=== PATIENT | female | born 2005 | race Caucasian/White ===

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

== ENCOUNTER 2023-04-02 16:49 | Emergency (ER) | payer MEDICAID ==
[2023-04-02] MEDS ORDERED: CLONIDINE 0.1 MG TABLET PO ONE (17:55)
[2023-04-02] MEDS ORDERED: CLONIDINE 0.1 MG TABLET ONE (17:58)
[2023-04-02 18:12] VITALS: O2SAT 98
--- NOTE | 2023-04-02 18:45 | ERPHSYRPT ---
- History of Present Illness Source: patient Exam Limitations: no limitations Patient Subjective Stated Complaint: Pt was at work when she noticed her blood pressure was elevated at 185/120 and so [facility], pt was in [place] last month with a blood pressure over 200 and she stated that they told her she was at stroke level and overweight and sent her home with no medication, pt then went to [facility] [place] and was placed on labetalol Triage Nursing Assessment: Pt brought self to the ER, hypertensive, rates head pain as 5/10, denies swelling of lower extremety, pulses normal, skin n/w/d, denies chest pain, states that she has been having SOB if she moves Physician History: 18 yo WF w recent diagnosis of hypertension treated w Labetalol x 1 month effectively per pt complains of elevated BP today along w B frontal headache. She has blurry vision but denies focal weakness/fever/stiff neck/nausea/vomiting/chest pain/dyspnea. Pain is 5/10. Timing/Duration: today Severity: mild Modifying Factors: Improves With: nothing Associated Symptoms: denies symptoms, headaches Allergies/Adverse Reactions: No Known Drug Allergies Allergy (Verified 04/02/23 17:09) Home Medications: Levothyroxine Sodium 50 Mcg [Synthroid 50 Mcg] 100 mcg PO DAILY 11/15/18 [History] Cholecalciferol (Vitamin D3) [Vitamin D3] 1,250 mcg PO WEEKLY 04/02/23 [History] Labetalol HCl 100 mg [Trandate 100 MG] 100 mg PO BID 04/02/23 [History] Levonorgestrel-Ethin Estradiol [[place]-28 Tablet] 1 each PO DAILY 04/02/23 [History] Venlafaxine HCl [Venlafaxine HCl ER] 75 mg PO DAILY 04/02/23 [History] Hx Tetanus, Diphtheria Vaccination/Date Given: Yes Hx Influenza Vaccination/Date Given: Yes (07/31/19) Hx Pneumococcal Vaccination/Date Given: No Travel Risk - International Travel Have you traveled outside of the country in past 3 weeks: No - Coronavirus Screening Are you exhibiting any of the following symptoms?: No Close contact with a COVID-19 positive Pt in past 14-21 Days: No - Vaccine Status Have you recieved a Covid-19 vaccination: Yes [employer]: [employer] - Vaccination Dates Date of 2cond Vaccination (if applicable): 2020 - Review of Systems Constitutional: No Symptoms, Malaise Eyes: No Symptoms Ears, Nose, & Throat: No Symptoms Respiratory: No Symptoms Cardiac: No Symptoms Abdominal/Gastrointestinal: No Symptoms Genitourinary Symptoms: No Symptoms Musculoskeletal: No Symptoms Skin: No Symptoms Neurological: No Symptoms, Headache Psychological: No Symptoms Endocrine: No Symptoms Hematologic/Lymphatic: No Symptoms Immunological/Allergic: No Symptoms - Past Medical History Pertinent Past Medical History: Yes Neurological History: No Pertinent History ENT History: No Pertinent History Cardiac History: No Pertinent History Respiratory History: No Pertinent History Endocrine Medical History: Hypothyroidism Musculoskeletal History: No Pertinent History GI Medical History: No Pertinent History History: No Pertinent History Psycho-Social History: Attention Deficit Disorder Female Reproductive Disorders: No Pertinent History - Past Surgical History Past Surgical History: Yes Neuro Surgical History: No Pertinent History Cardiac: No Pertinent History Respiratory: No Pertinent History Gastrointestinal: No Pertinent History Genitourinary: No Pertinent History Musculoskeletal: No Pertinent History Female Surgical History: No Pertinent History Other Surgical History: T & A - Social History Smoking Status: Never smoker Exposure to second hand smoke: No Drug Use: none Patient Lives Alone: No Significant Family History: other (brother had liver transplant, mother had heart failure) - Female History Hx Last Menstrual Period: 03/31/2023 Hx Now: No (on control) - Nursing Vital Signs Nursing Vital Signs: Initial Vital Signs Pulse Rate 95 H 04/02/23 16:57 Blood Pressure 154/104 04/02/23 16:57 O2 Sat by Pulse Oximetry 97 04/02/23 16:57 Pain Scale Pain Intensity 5 Hypertensive - Physical Exam General Appearance: no apparent distress Eye Exam: PERRL/EOMI, eyes nml inspection Ears, Nose, Throat Exam: normal ENT inspection, TMs normal, pharynx normal, moist mucous membranes Neck Exam: normal inspection, non-tender, supple, full range of motion, No meningismus, No mass, No Brudzinski, No Kernig's, No carotid bruit Respiratory Exam: normal breath sounds, lungs clear, airway intact Cardiovascular Exam: regular rate/rhythm, normal heart sounds, normal peripheral pulses, capillary refill <2 sec, No murmur Gastrointestinal/Abdomen Exam: soft, normal bowel sounds, No tenderness Back Exam: normal inspection, normal range of motion, No CVA tenderness, No vertebral tenderness Extremity Exam: normal inspection, normal range of motion Neurologic Exam: alert, oriented x 3, cooperative, travel accommodations rater II-XII nml as tested, normal mood/affect, nml cerebellar function, nml station & gait, sensation nml Skin Exam: normal color, warm, dry Lymphatic Exam: No adenopathy SpO2 Interpretation: normal SpO2: 98 O2 Delivery: Room Air - Course Nursing assessment & vital signs reviewed: Yes - CT Exams Head CT Interpretation: Discussed w/radiologist (CT head neg) Ordered Tests: Active Orders 24 hr Category Date Time Status IV Insertion STAT Care 04/02/23 17:12 Completed POCT Glucose Check STAT Care 04/02/23 19:14 Completed HEAD WITHOUT CONTRAST [CT] Stat Exams 04/02/23 17:55 Taken POCT GLUCOSE Stat Lab 04/02/23 19:16 Completed Medication Summary Discontinued Medications Generic Name Dose Route Start Last Admin Trade Name T[place]ana PRN Reason Stop Dose Admin Clonidine 0.2 mg 04/02/23 17:55 04/02/23 17:59 Clonidine Hcl 0.1 Mg Tablet PO 04/02/23 17:56 0.2 mg STAT ONE Administration Clonidine Confirm 04/02/23 17:58 Clonidine Hcl 0.1 Mg Tablet Administered 04/02/23 17:59 Dose 0.2 mg .ROUTE .STK-MED ONE Ketorolac Tromethamine 15 mg 04/02/23 19:11 04/02/23 19:15 Ketorolac Tromethamine 30 Mg/Ml Inj IV 04/02/23 19:12 15 mg STAT ONE Administration Ketorolac Tromethamine Confirm 04/02/23 19:15 Ketorolac Tromethamine 30 Mg/Ml Inj Administered 04/02/23 19:16 Dose 30 mg .ROUTE .STK-MED ONE Lab/Rad Data: Laboratory Results 04/02/23 Range/Units 19:16 POC Glucometer 111 H (74 to 106) mg/dL - Progress Progress Note: 04/02/23 19:21 Nursing note and vital signs reviewed No food or housing insecurities noted Additional history per mother CT head result reviewed and shared w pt/mother BP improved w 0.2 po Clonidine 15mg IV Toradol Accu-check w glucose 111 Serial neuro exams normal 04/02/23 19:23 Counseled pt/family regarding: diagnosis, need for follow-up, rad results Medical Desision Making - Independent Historian Additional History obtained from: Mother - Diagnostic Testing Radiological Interpretation: Reviewed by me, Discussed w/ radiologist - Risk of complications The pt has a mod risk of morbidity or mortality based on: Need for prescription drug management - Departure Departure Disposition: Home Clinical Impression: Hypertension, Headache Condition: Stable Critical Care Time: No Referrals: BIN EMANUEL MD [Primary Care Provider] - Follow up/PCP as directed Instructions: Malignant Hypertension (DC) Additional Instructions: Continue Labetalol Follow up with your family MD in 1-2 days Return to ER for increasing pain, focal weakness, or persistently elevated blood pressure
[2023-04-02] MEDS ORDERED: TORAdol 30 mg Injection IV ONE (19:11)
[2023-04-02] MEDS ORDERED: TORAdol 30 mg Injection ONE (19:15)
[2023-04-02 19:20] VITALS: BP 132/96; PULSE 70
--- NOTE | 2023-04-03 08:40 | XRAY ---
Indication: Headache. Hypertension. Migraine headache. Multiple contiguous axial images obtained through the head without contrast. Comparison: November 15, 2018 Continued normal appearing brain parenchyma, ventricles, and bony calvarium with incidental anatomic variant for cavum septum pellucidum. Visualized paranasal sinuses and mastoid air cells are clear. Impression: Continued normal CT head without contrast exam.
== END 2023-04-02 19:32 | disposition home or self-care (01) ==
LOC: ED 16:49
DX: I10 Essential (primary) hypertension (principal); R51.9 Headache, unspecified; H53.8 Other visual disturbances; Z79.899 Other long term (current) drug therapy
CPT/HCPCS: 36000; 70450; 82947; 96374; 99284; J1885; A9270-GY

== ENCOUNTER 2025-07-06 08:26 | Emergency (ER) | payer BC ==
[2025-07-06 08:38] VITALS: TEMP 97.2
--- NOTE | 2025-07-06 08:58 | ERPHSYRPT ---
- History of Present Illness Time Seen by Provider: 07/06/25 08:32 Patient Subjective Stated Complaint: patient came in today having chest pain and shortness of breath Triage Nursing Assessment: pt is alert and orientedx3, able to ambulate by self, mom drove her to ED this morning, she has been having episodes of shortness of breath and dizzyness, some chest pain, she says DR. Preston order echo and a halter monitor she is supposed to start wearing. echo is scheduled for . patient has no edema noted, gait is steady, skin warm dry and intact. says shes been feeling like this for some time jsut recently starting testing done. 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) and has blood test and an echocardiogram scheduled, Apparently they also schedule sleep study, PMH: Hypertension, hypothyroid; Prior Episodes: recent history Timing/Duration: intermittent Precipitating Factors: lightheadedness Context: other (Positional) Charcter of event(s): felt faint Allergies/Adverse Reactions: No Known Drug Allergies Allergy (Verified 04/02/23 17:09) Home Medications: Levothyroxine Sodium 50 Mcg [Synthroid 50 Mcg] 100 mcg PO DAILY 11/15/18 [History] Labetalol HCl 100 mg [Trandate 100 MG] 200 mg PO BID 04/02/23 [History] Venlafaxine HCl [Venlafaxine HCl ER] 150 mg PO DAILY 04/02/23 [History] Amlodipine Besylate 5 mg [Norvasc 5 mg] 2.5 mg PO DAILY 07/06/25 [History] Hx Tetanus, Diphtheria Vaccination/Date Given: Yes Hx Influenza Vaccination/Date Given: Yes (07/31/19) Hx Pneumococcal Vaccination/Date Given: No Travel Risk - International Travel Have you traveled outside of the country in past 3 weeks: No - Emerging Infectious Disease Are you exhibiting symptoms associated with any current EIDs: No - Past Medical History Pertinent Past Medical History: Yes Neurological History: No Pertinent History ENT History: No Pertinent History Cardiac History: No Pertinent History Respiratory History: No Pertinent History Endocrine Medical History: Hypothyroidism Musculoskeletal History: No Pertinent History GI Medical History: No Pertinent History History: No Pertinent History Psycho-Social History: Attention Deficit Disorder Female Reproductive Disorders: No Pertinent History - Past Surgical History Past Surgical History: Yes Neuro Surgical History: No Pertinent History Cardiac: No Pertinent History Respiratory: No Pertinent History Gastrointestinal: No Pertinent History Genitourinary: No Pertinent History Musculoskeletal: No Pertinent History Female Surgical History: No Pertinent History Other Surgical History: T & A Significant Family History: other (brother had liver transplant, mother had heart failure) - Female History Hx Last Menstrual Period: NA Hx Now: No - Social History Smoking Status: Never smoker Exposure to second hand smoke: No Drug Use: none - Social Determinants of Health Will the patient participate in the screening: Yes Do you worry about a steady place to live?: No Do you have any problems with any of the following?: No known problems In the past 12 months,have you had to go without utilities?: No Transportation Issues: No Has anyone in your support network made you feel unsafe?: No Have you or anyone in your house had to go w/o enough food: No Physical Exam - Nursing Vital Signs Nursing Vital Signs: Initial Vital Signs Temperature 97.2 F 07/06/25 08:30 Pulse Rate 85 07/06/25 08:30 Respiratory Rate 16 07/06/25 08:30 Blood Pressure 140/110 07/06/25 08:30 O2 Sat by Pulse Oximetry 99 07/06/25 08:30 Pain Scale Pain Intensity 0 - Physical Exam General Appearance: no apparent distress, alert, obese Eye Exam: bilateral eye: normal inspection, PERRL, EOMI Ears, Nose, Throat Exam: normal ENT inspection, pharynx normal, moist mucous membranes Neck Exam: normal inspection, non-tender, supple, full range of motion Respiratory: normal breath sounds, lungs clear Cardiovascular: regular rate/rhythm, normal heart sounds, normal peripheral pulses Gastrointestinal: soft, normal bowel sounds Extremity Exam: normal inspection, normal range of motion, pelvis stable manager programs Exam: normal hearing, normal speech, PERRL Coordination/Gait: normal cerebellar function Motor/Sensory: no motor deficit, no sensory deficit, no pronator drift Skin Exam: normal color, warm, dry SpO2 Interpretation: normal SpO2: 100 - Course EKG Interpreted by Me: Sinus Rhythm, NORMAL AXIS, NORMAL INTERVALS, NORMAL QRS, NORMAL ST-T Ordered Tests: Active Orders 24 hr Category Date Time Status IV Insertion STAT Care 07/06/25 08:47 Active CHEST 1 VIEW (PORTABLE) Stat Exams 07/06/25 08:57 Completed CBC W DIFF Stat Lab 07/06/25 08:50 Completed CMP Stat Lab 07/06/25 08:50 Completed D-DIMER QUANTITATIVE Stat Lab 07/06/25 08:50 Completed TROPONIN Q2H Lab 07/06/25 08:50 Completed TROPONIN Q2H Lab 07/06/25 10:44 Completed TROPONIN Q2H Lab 07/06/25 13:00 Ordered Lab/Rad Data: Laboratory Result Diagrams 07/06/25 08:50 07/06/25 08:50 Laboratory Results 07/06/25 07/06/25 07/06/25 Range/Units 10:44 08:50 08:50 WBC (3.98-10.04) x10^3/uL RBC (3.93-5.22) x10^6/uL Hgb (11.2-15.7) g/dL Hct (34.1-44.9) % MCV (79.4-94.8) fL MCH (25.6-32.2) pg MCHC (32.2-35.5) g/dL RDW (11.7-14.4) % Plt Count (182-369) x10^3/uL MPV (9.4-12.3) fL Gran % (34.0-71.1) % Immature Gran % (Auto) (0.001-0.429) % Nucleat RBC Rel Count (0.00-0.2) % Eos # (Auto) (0.04-0.36) x10^3/uL Immature Gran # (Auto) (0.001-0.031) x10^3u/L Absolute Lymphs (auto) (1.18-3.74) x10^3/uL Absolute Monos (auto) (0.24-0.86) x10^3/uL Absolute Nucleated RBC (0.00-0.012) x10^3u/L Lymphocytes % (19.3-51.7) % Monocytes % (4.7-12.5) % Eosinophils % (0.7-5.8) % Basophils % (0.1-1.2) % Absolute Granulocytes (1.56-6.13) x10^3/uL Basophils # (0.01-0.08) x10^3/uL D-Dimer < 0.19 (0.0-0.50) mg/L Sodium (135-145) mmol/L Potassium (3.5-5.1) mmol/L Chloride (98-107) mmol/L Carbon Dioxide (22-30) mmol/L Anion Gap (5-15) MEQ/L BUN (7-17) mg/dL Creatinine (0.52-1.04) mg/dL Estimated GFR ML/MIN Glucose (74-106) mg/dL Calcium (8.4-10.2) mg/dL Total Bilirubin (0.2-1.3) mg/dL AST (14-36) U/L ALT (0-35) U/L Alkaline Phosphatase (38-126) U/L Troponin I < 0.012 < 0.012 (0.000-0.033) ng/mL Serum Total Protein (6.3-8.2) g/dL Albumin (3.5-5.0) g/dL 07/06/25 07/06/25 Range/Units 08:50 08:50 WBC 6.6 (3.98-10.04) x10^3/uL RBC 4.79 (3.93-5.22) x10^6/uL Hgb 14.5 (11.2-15.7) g/dL Hct 43.2 (34.1-44.9) % MCV 90.2 (79.4-94.8) fL MCH 30.3 (25.6-32.2) pg MCHC 33.6 (32.2-35.5) g/dL RDW 12.2 (11.7-14.4) % Plt Count 286 (182-369) x10^3/uL MPV 10.3 (9.4-12.3) fL Gran % 50.4 (34.0-71.1) % Immature Gran % (Auto) 0.3 (0.001-0.429) % Nucleat RBC Rel Count 0.0 (0.00-0.2) % Eos # (Auto) 0.11 (0.04-0.36) x10^3/uL Immature Gran # (Auto) 0.02 (0.001-0.031) x10^3u/L Absolute Lymphs (auto) 2.43 (1.18-3.74) x10^3/uL Absolute Monos (auto) 0.65 (0.24-0.86) x10^3/uL Absolute Nucleated RBC 0.00 (0.00-0.012) x10^3u/L Lymphocytes % 36.9 (19.3-51.7) % Monocytes % 9.9 (4.7-12.5) % Eosinophils % 1.7 (0.7-5.8) % Basophils % 0.8 (0.1-1.2) % Absolute Granulocytes 3.32 (1.56-6.13) x10^3/uL Basophils # 0.05 (0.01-0.08) x10^3/uL D-Dimer (0.0-0.50) mg/L Sodium 138 (135-145) mmol/L Potassium 4.1 (3.5-5.1) mmol/L Chloride 107 (98-107) mmol/L Carbon Dioxide 22 (22-30) mmol/L Anion Gap 13.7 (5-15) MEQ/L BUN 15 (7-17) mg/dL Creatinine 0.64 (0.52-1.04) mg/dL Estimated GFR 128.1 ML/MIN Glucose 87 (74-106) mg/dL Calcium 9.5 (8.4-10.2) mg/dL Total Bilirubin 0.40 (0.2-1.3) mg/dL AST 24 (14-36) U/L ALT 19 (0-35) U/L Alkaline Phosphatase 73 (38-126) U/L Troponin I (0.000-0.033) ng/mL Serum Total Protein 6.7 (6.3-8.2) g/dL Albumin 4.3 (3.5-5.0) g/dL - Progress Progress Note: 07/06/25 11:45 Discussed results, recommend continue outpatient workup and evaluation - Departure Departure Disposition: Home Clinical Impression: Near syncope Condition: Stable Critical Care Time: No Referrals: BIN EMANUEL MD [Primary Care Provider, [facility]] - Follow up with PCP 7 days Instructions: Near Fainting
[2025-07-06 09:04] LABS: BASOPHIL % 0.8 % (0.1-1.2); Basophil (Absolute #) 0.05 x10^3/uL (0.01-0.08); Eosinophil (Absolute #) 0.11 x10^3/uL (0.04-0.36); Hematocrit 43.2 % (34.1-44.9); Hemoglobin 14.5 g/dL (11.2-15.7); IMMATURE GRAN # 0.02 x10^3u/L (0.001-0.031); IMMATURE GRAN % 0.3 % (0.001-0.429); Lymphocyte (Absolute #) 2.43 x10^3/uL (1.18-3.74); Mean Corpuscular Hemoglobin 30.3 pg (25.6-32.2); Mean Corpuscular Hgb Concent. 33.6 g/dL (32.2-35.5); Monocyte (Absolute #) 0.65 x10^3/uL (0.24-0.86); NUCLEATED RBC # 0.00 x10^3u/L (0.00-0.012); NUCLEATED RBC % 0.0 % (0.00-0.2); Platelet Count 286 x10^3/uL (182-369); Red Blood Count 4.79 x10^6/uL (3.93-5.22); White Blood Count 6.6 x10^3/uL (3.98-10.04)
[2025-07-06 09:18] LABS: Calcium 9.5 mg/dL (8.4-10.2); Carbon Dioxide 22.0 mmol/L (22-30); Creatinine 1 0.64 mg/dL (0.52-1.04); EST GLOMERULAR FILTRATION RATE 128.1 ML/MIN; Glucose 87.0 mg/dL (74-106); Potassium 4.1 mmol/L (3.5-5.1); SGOT/AST 24.0 U/L (14-36); SGPT/ALT 19.0 U/L (0-35); Total Protein 6.7 g/dL (6.3-8.2)
--- NOTE | 2025-07-06 09:54 | XRAY ---
CLINICAL HISTORY: CHEST PAIN COMPARISON: None. TECHNIQUE: X-ray of the chest was obtained in AP portable projection. FINDINGS: The patient is technically rotated. ECG leads are seen superimposed on the chest. No definite consolidation or collapse is identified on either side. A questionable small nodule measuring up to 0.4 x 0.5 cm is identified in the right lower zone. The cardiac silhouette cannot be accurately commented upon due to the AP supine projection. The devin appear unremarkable. The visualized bony thorax is intact, without definite evidence of fractures. The costophrenic and cardiophrenic angles appear clear. The visualized soft tissues appear grossly unremarkable. IMPRESSION: 1. A small questionable nodule is seen in the right lower zone. 2. There is no definite evidence of pleuropulmonary infection identified on either side. 3. Clinical correlation and follow-up are warranted if indicated. Electronically Signed by: Bharat Shi MD. (07/06/2025 09:51:52 EDT)
[2025-07-06 11:33] VITALS: BP 114/85; PULSE 74; RESP 17
[2025-07-06 11:47] VITALS: O2SAT 100
== END 2025-07-06 11:55 | disposition home or self-care (01) ==
LOC: ED 08:26
DX: R55 Syncope and collapse (principal); I10 Essential (primary) hypertension; Z79.899 Other long term (current) drug therapy

== ENCOUNTER 2025-08-24 18:00 | Emergency (ER) | payer BC ==
[2025-08-24 18:16] VITALS: TEMP 98
--- NOTE | 2025-08-24 18:22 | ERPHSYRPT ---
- History of Present Illness Patient Subjective Stated Complaint: patient states that she has had dull chest pain for the past 3 days, patient states she woke up this morning and the pain to center of chest is now a sharp, intermittent pain Triage Nursing Assessment: patient presents to ed via private vehicle, patient able to ambulate into ed without complication, patient does not appear to be in any apparent distress, patient has complaints of chest pain at the center of the chest with no complaints of radiation, patient describes the pain as sharp/intermittent pain, patient denies SOB, S1 and S2 heard upon auscultation, skin p/w/d, patient alert and oriented x 4 Physician History: Chest pain, onset of symptoms yesterday, she has been taking aspirin, she has no history of hypertension, hypothyroidism, she has had a previous cardiac workup and evaluation by cardiology including echocardiogram, pain is in the left upper aspect of the chest and some pain to her back Timing/Duration: day(s) (1) Quality: stabbing Location: central Severity of Pain-Max: moderate Modifying Factors: Improves With: nothing Associated Symptoms: denies symptoms Prior Chest Pain/Cardiac Workup: echocardiography, recently seen/treated Nitro Today/Relief: no nitro taken today Aspirin Treatment Today: 325 mg x 1 Allergies/Adverse Reactions: No Known Drug Allergies Allergy (Verified 08/24/25 18:07) Home Medications: Levothyroxine Sodium 50 Mcg [Synthroid 50 Mcg] 100 mcg PO DAILY 11/15/18 [History] Labetalol HCl 100 mg [Trandate 100 MG] 200 mg PO BID 04/02/23 [History] Venlafaxine HCl [Venlafaxine HCl ER] 150 mg PO DAILY 04/02/23 [History] Amlodipine Besylate 5 mg [Norvasc 5 mg] 2.5 mg PO DAILY PRN 07/06/25 [History] Hx Tetanus, Diphtheria Vaccination/Date Given: Yes Hx Influenza Vaccination/Date Given: No Hx Pneumococcal Vaccination/Date Given: No Travel Risk - International Travel Have you traveled outside of the country in past 3 weeks: No - Emerging Infectious Disease Are you exhibiting symptoms associated with any current EIDs: No - Past Medical History Pertinent Past Medical History: Yes Neurological History: No Pertinent History ENT History: No Pertinent History Cardiac History: No Pertinent History, Hypertension Respiratory History: No Pertinent History Endocrine Medical History: Hypothyroidism Musculoskeletal History: No Pertinent History GI Medical History: No Pertinent History History: No Pertinent History Psycho-Social History: Attention Deficit Disorder Female Reproductive Disorders: No Pertinent History Other Medical History: vasovagal syncope. prediabetic - Past Surgical History Past Surgical History: Yes Neuro Surgical History: No Pertinent History Cardiac: No Pertinent History Respiratory: No Pertinent History Gastrointestinal: No Pertinent History Genitourinary: No Pertinent History Musculoskeletal: No Pertinent History Female Surgical History: No Pertinent History Other Surgical History: T & A Significant Family History: other (brother had liver transplant, mother had heart failure) - Female History Hx Last Menstrual Period: 08/24/25 Hx Now: No - Social History Smoking Status: Never smoker Exposure to second hand smoke: No Drug Use: marijuana - Social Determinants of Health Will the patient participate in the screening: Yes Do you worry about a steady place to live?: No Do you have any problems with any of the following?: No known problems In the past 12 months,have you had to go without utilities?: No Transportation Issues: No Has anyone in your support network made you feel unsafe?: No Have you or anyone in your house had to go w/o enough food: No - Nursing Vital Signs Nursing Vital Signs: Initial Vital Signs Temperature 98 F 08/24/25 18:00 Pulse Rate 95 H 08/24/25 18:00 Respiratory Rate 24 08/24/25 18:00 Blood Pressure 148/93 08/24/25 18:00 O2 Sat by Pulse Oximetry 96 08/24/25 18:00 Pain Scale Pain Intensity 7 - Physical Exam General Appearance: no apparent distress, alert, obese Eye Exam: PERRL/EOMI, eyes nml inspection Ears, Nose, Throat Exam: normal ENT inspection, moist mucous membranes Neck Exam: normal inspection, non-tender, supple, full range of motion Respiratory Exam: normal breath sounds, lungs clear, No respiratory distress Cardiovascular Exam: regular rate/rhythm, normal heart sounds Gastrointestinal/Abdomen Exam: soft, No tenderness, No mass Back Exam: normal inspection, No CVA tenderness, No vertebral tenderness Extremity Exam: normal inspection, normal range of motion Neurologic Exam: alert, oriented x 3, cooperative, normal mood/affect, sensation nml, No motor deficits Skin Exam: normal color, warm, dry SpO2 Interpretation: normal SpO2: 98 Ordered Tests: Active Orders 24 hr Category Date Time Status CHEST 1 VIEW (PORTABLE) Stat Exams 08/24/25 18:19 Taken CBC W DIFF Stat Lab 08/24/25 18:00 Completed CMP Stat Lab 08/24/25 18:00 Completed HCG QUALITATIVE, URINE Stat Lab 08/24/25 Ordered TROPONIN Q4H Lab 08/24/25 18:00 Completed TROPONIN Q4H Lab 08/24/25 22:30 Ordered TROPONIN Q4H Lab 08/25/25 02:30 Ordered Lab/Rad Data: Laboratory Result Diagrams 08/24/25 18:00 08/24/25 18:00 Laboratory Results 08/24/25 08/24/25 08/24/25 Range/Units 18:00 18:00 18:00 WBC 8.5 (3.98-10.04) x10^3/uL RBC 4.75 (3.93-5.22) x10^6/uL Hgb 14.6 (11.2-15.7) g/dL Hct 42.8 (34.1-44.9) % MCV 90.1 (79.4-94.8) fL MCH 30.7 (25.6-32.2) pg MCHC 34.1 (32.2-35.5) g/dL RDW 12.2 (11.7-14.4) % Plt Count 321 (182-369) x10^3/uL MPV 10.0 (9.4-12.3) fL Gran % 55.4 (34.0-71.1) % Immature Gran % (Auto) 0.4 (0.001-0.429) % Nucleat RBC Rel Count 0.0 (0.00-0.2) % Eos # (Auto) 0.12 (0.04-0.36) x10^3/uL Immature Gran # (Auto) 0.03 (0.001-0.031) x10^3u/L Absolute Lymphs (auto) 2.82 (1.18-3.74) x10^3/uL Absolute Monos (auto) 0.78 (0.24-0.86) x10^3/uL Absolute Nucleated RBC 0.00 (0.00-0.012) x10^3u/L Lymphocytes % 33.1 (19.3-51.7) % Monocytes % 9.1 (4.7-12.5) % Eosinophils % 1.4 (0.7-5.8) % Basophils % 0.6 (0.1-1.2) % Absolute Granulocytes 4.73 (1.56-6.13) x10^3/uL Basophils # 0.05 (0.01-0.08) x10^3/uL Sodium 137 (135-145) mmol/L Potassium 4.2 (3.5-5.1) mmol/L Chloride 105 (98-107) mmol/L Carbon Dioxide 21 L (22-30) mmol/L Anion Gap 15.2 H (5-15) MEQ/L BUN 15 (7-17) mg/dL Creatinine 0.75 (0.52-1.04) mg/dL Estimated GFR 115.4 ML/MIN Glucose 102 (74-106) mg/dL Calcium 9.5 (8.4-10.2) mg/dL Total Bilirubin < 0.10 L (0.2-1.3) mg/dL AST 24 (14-36) U/L ALT 21 (0-35) U/L Alkaline Phosphatase 101 (38-126) U/L Troponin I < 0.012 (0.000-0.033) ng/mL Serum Total Protein 6.9 (6.3-8.2) g/dL Albumin 4.4 (3.5-5.0) g/dL - Departure Clinical Impression: Chest pain Condition: Stable Critical Care Time: No Referrals: BIN EMANUEL MD [Primary Care Provider, [facility]] - Follow up/PCP as directed
[2025-08-24 18:27] LABS: BASOPHIL % 0.6 % (0.1-1.2); Basophil (Absolute #) 0.05 x10^3/uL (0.01-0.08); Eosinophil (Absolute #) 0.12 x10^3/uL (0.04-0.36); Hematocrit 42.8 % (34.1-44.9); Hemoglobin 14.6 g/dL (11.2-15.7); IMMATURE GRAN # 0.03 x10^3u/L (0.001-0.031); IMMATURE GRAN % 0.4 % (0.001-0.429); Lymphocyte (Absolute #) 2.82 x10^3/uL (1.18-3.74); Mean Corpuscular Hemoglobin 30.7 pg (25.6-32.2); Mean Corpuscular Hgb Concent. 34.1 g/dL (32.2-35.5); Monocyte (Absolute #) 0.78 x10^3/uL (0.24-0.86); NUCLEATED RBC # 0.00 x10^3u/L (0.00-0.012); NUCLEATED RBC % 0.0 % (0.00-0.2); Platelet Count 321 x10^3/uL (182-369); Red Blood Count 4.75 x10^6/uL (3.93-5.22); White Blood Count 8.5 x10^3/uL (3.98-10.04)
[2025-08-24 18:42] LABS: Calcium 9.5 mg/dL (8.4-10.2); Carbon Dioxide 21 mmol/L (22-30); Creatinine 1 0.75 mg/dL (0.52-1.04); EST GLOMERULAR FILTRATION RATE 115.4 ML/MIN; Glucose 102 mg/dL (74-106); Potassium 4.2 mmol/L (3.5-5.1); SGOT/AST 24 U/L (14-36); SGPT/ALT 21 U/L (0-35); Total Protein 6.9 g/dL (6.3-8.2)
[2025-08-24 21:02] VITALS: BP 130/88; PULSE 88; RESP 27; O2SAT 98
--- NOTE | 2025-08-25 08:52 | XRAY ---
Indication: Chest pain. Comparison: July 06, 2025 Portable chest again demonstrates normal heart, lungs, and bony thorax with incidental right base calcified granuloma.
== END 2025-08-24 21:28 | disposition home or self-care (01) ==
LOC: ED 18:00
DX: R07.9 Chest pain, unspecified (principal); I10 Essential (primary) hypertension; Z79.899 Other long term (current) drug therapy